=== PATIENT | male | born 1995 | race African-American/Black ===

== ENCOUNTER 2019-11-06 15:44 | Emergency (ER) | payer SELFPAY ==
[~2019-11-06] VITALS: Ht 188 cm; Wt 86.2 kg
[2019-11-06] MEDS ORDERED: NORCO 5-325 TA1 EACH PO (16:15)
[2019-11-06] MEDS ORDERED: PREDNISONE20 MG PO (16:15)
[2019-11-06] MEDS ORDERED: CLINDAMYCIN HC300 MG PO (16:15)
== END 2019-11-06 16:45 | disposition home or self-care (01) ==
LOC: ED 15:44
DX: K04.7 Periapical abscess without sinus (principal); F17.200 Nicotine dependence, unspecified, uncomplicated
CPT/HCPCS: 96372; 99283; J1100; J1885